=== PATIENT | male | born 1955 | race Caucasian/White ===

== ENCOUNTER 2024-05-28 12:36 | Day surgery (SDC) | payer MEDICARE ==
[2024-05-27 12:57] VITALS: BMI 23.6
[2024-05-28] MEDS ORDERED: Bupivacaine PF 0.5% 30 ML VIAL ONE (13:24)
[2024-05-28] MEDS ORDERED: Midazolam HCl 2 mg/2 ml Vial ONE (13:24)
[2024-05-28] MEDS ORDERED: fentaNYL 50 mcg/mL 1 mL Vial ONE (13:24)
[2024-05-28] MEDS ORDERED: Clindamycin/D5W 900 mg/50 ml Premix Bag ONE (13:29)
[2024-05-28] MEDS ORDERED: Bupivacaine HCl 0.5%/Epinephrine 1:200,000/PF 30 ml Vial ONE (13:45)
[2024-05-28] MEDS ORDERED: Lidocaine 1% PF 5 ML VIAL ONE (13:49)
[2024-05-28] MEDS ORDERED: PROPOFOL 20 ML ONE (13:49)
[2024-05-28] MEDS ORDERED: Ondansetron PF 4 MG/2 ML Vial ONE (13:49)
[2024-05-28] MEDS ORDERED: Ketorolac Tromethamine 30 MG (1 mL) VIAL ONE (13:49)
== END 2024-05-28 16:45 | disposition home or self-care (01) ==
LOC: SDC 12:36
PROVIDERS: ATTEND Orthopaedic Surgery
PROC: 0PSH04Z Reposition Right Radius with Internal Fixation Device, Open Approach (ICD-10-PCS; principal; 2024-05-28)
DX: S52.501A Unspecified fracture of the lower end of right radius, initial encounter for closed fracture (principal); M19.90 Unspecified osteoarthritis, unspecified site; S52.531A Colles' fracture of right radius, initial encounter for closed fracture; J45.909 Unspecified asthma, uncomplicated; J30.2 Other seasonal allergic rhinitis; F32.A Depression, unspecified; E78.00 Pure hypercholesterolemia, unspecified; Z87.891 Personal history of nicotine dependence; Z88.0 Allergy status to penicillin; W11.XXXA Fall on and from ladder, initial encounter
CPT/HCPCS: 25608; 64415; 73090; C1713 ×5; J0665; J1885; J2250; J2405; J2704; J3010; J3490